=== PATIENT | male | born 1950 | race Two or more races ===

== ENCOUNTER 2022-12-14 05:59 | Emergency (ER) | payer BC, OTHER ==
[~2022-12-14] VITALS: Ht 182.9 cm; Wt 77.1 kg
--- NOTE | 2022-12-14 06:13 | NUR ---
[id number] FROM [facility] FOR S/P TRIP AND FALL, LAC ON FOREHEAD NO BLOOD THINNERS, NO LOC. PT A/OX. TOLERATING R/A WELL WITH NO RESP DISTRESS. SAFETY MEASURES IN PLACE.
[2022-12-14] MEDS ORDERED: LIDOCAINE HCL/PF 1% 30 ML SDV ONE (06:39)
[2022-12-14] MEDS ORDERED: TDAP [DIPH/PERTUSSIS/TET] 0.5 ML VIAL IM ONE ×2 (06:54→07:00)
[2022-12-14] MEDS ORDERED: BACI/NEOM/POLY B OINT PKT 1 UDPKT PACKET TP ONE (07:00)
[2022-12-14] MEDS ORDERED: LIDOCAINE 1% INJ 50 ML MDV IJ ONE (07:00)
[2022-12-14] MEDS ORDERED: BACI/NEOM/POLY B OINT PKT 1 UDPKT PACKET ONE (07:15)
--- NOTE | 2022-12-14 07:15 | NUR ---
RECEIVED PT FROM DENNIS ERIC MD AT BED FOR SUTURE AT BED SIDE RT FORHEAD
--- NOTE | 2022-12-14 07:35 | NUR ---
TD GIVEN ON LT ARM
--- NOTE | 2022-12-14 08:19 | NUR ---
RESTING AND ASLEEPY AT THIS TIME NO PAIN
--- NOTE | 2022-12-14 08:49 | NUR ---
CALLED [facility] FOR TRANSPORT ETA 60 MINS PER SOL.
--- NOTE | 2022-12-14 09:11 | NUR ---
CALLED [facility] WITH [employer] [facility] about care and plan of care
--- NOTE | 2022-12-14 10:19 | NUR ---
Patient discharged to home in stable condition. Written and verbal after care instructions given. Patient verbalizes understanding of instruction.
[2022-12-14 10:26] VITALS: BP 131/72
== END 2022-12-14 10:27 ==
LOC: ER 06:03
DX: S01.81XA Laceration without foreign body of other part of head, initial encounter (principal); W01.0XXA Fall on same level from slipping, tripping and stumbling without subsequent striking against object, initial encounter; Y93.89 Activity, other specified; Y92.89 Other specified places as the place of occurrence of the external cause; Y99.8 Other external cause status
CPT/HCPCS: 99285; 70450; 12013; 90471; 90715; A6403; J3490